=== PATIENT | male | born 1995 | race Caucasian/White ===

== ENCOUNTER 2017-11-10 18:40 | Emergency (ER) | payer SELFPAY ==
[2017-11-10 18:41] VITALS: BP 127/78; PULSE 126; RESP 18; TEMP 36.1; O2SAT 99; BMI 20.2
[2017-11-10 19:45] LABS: Bacteria 0 SEEN /hpf (None Seen); Red Blood Cells-Urine 0 SEEN /hpf (0-5); Squamous Epithelial Cells - UA 0 SEEN /hpf (0-5)
[2017-11-10 19:59] LABS: Glucose, Dipstick Normal (Normal); Ketone-Dipstick Negative (Negative); Leukocyte Esterase-Dipstick 500 /ul (Negative); Nitrite-Dipstick Negative (Negative); Occult Blood-Urine 25 /ul (Negative); Protein-Dipstick 100 mg/dl (Negative); Specific Gravity, Urine 1.015 (1.002-1.030); Urine Clarity Cloudy (Clear); Urine Urobilinogen 4 mg/dl (Normal)
[2017-11-10 20:20] LABS: Color, Urine Amber (Yellow)
[2017-11-10 20:21] LABS: Urine Bilirubin Dipstick 1 mg/dL (Negative)
[2017-11-10 20:25] LABS: White Blood Cells 50-100 SEEN /hpf (0-5)
[2017-11-10 20:26] LABS: Mucous, Urine 1+ /hpf (<or=2+)
--- NOTE | 2017-11-10 20:41 | US_ITS ---
STUDY: SCROTUM ULTRASOUND REASON FOR EXAM: Male, 22 years old. Left scrotal pain TECHNIQUE: Ultrasound evaluation of the scrotum was performed with color Doppler and static montano-scale imaging. COMPARISON: None. FINDINGS: RIGHT TESTICLE INTRATESTICULAR: There is a normal size of the right testicle. The right testicle measures 4.6 x 2.9 x 2.6 cm. There is a homogenous echotexture. There is normal arterial and normal venous vascularity. There is no demonstrated right testicular mass or cyst. EXTRATESTICULAR: The epididymis is normal in size. The epididymis head measures 1.2 x 0.8 x 0.7 cm. There is normal vascularity of the epididymis. There is no demonstrated epididymal cystic structure. There is a small complex hydrocele. There is no demonstrated varicocele. There is no demonstrated extratesticular mass or cyst. LEFT TESTICLE INTRATESTICULAR: There is a normal size of the left testicle. The left testicle measures 4.6 x 3.4 x 2.6 cm. There is a homogenous echotexture. There is normal arterial and normal venous vascularity. There is no demonstrated left testicular mass or cyst. EXTRATESTICULAR: The epididymis is normal in size. The epididymis head measures 1.3 x 0.6 x 0.7 cm. There is increased vascularity of the epididymis. There is no demonstrated epididymal cystic structure. There is moderate size complex hydrocele. There is no demonstrated varicocele. There is no demonstrated extratesticular mass or cyst. US/Testicular with Arterial Flow IMPRESSION: No evidence for testicular mass or torsion. . Acute left-sided epididymitis with moderate-sized complex hydrocele Electronically Signed: Tato Barahona MD at 22:25 EDT , Service support ,
[2017-11-10] MEDS: Doxycycline 100 MG CAPSULE PO (21:00)
[2017-11-10] MEDS: HYDROcodone Bitartrate/Apap 5/325 Tablet PO (21:01)
[2017-11-10] MEDS: Ceftriaxone 500 MG Vial 250 MG IM (21:15)
--- NOTE | 2017-11-10 23:02 | ED.VISSUMM ---
- ER Visit Summary Date of Service: 11/10/17 Chief Complaint: Left testicle pain History of Present Illness: The patient is a 22 M with left testicle pain for 4 days. He noted some penile discharge with this. He has not had fever. He denies any high risk sexual activities or new partners. No rashes or other symptoms. Physical Examination: Afebrile vital signs unremarkable except for a heart rate of 126. Left testicle is diffusely swollen and tender to palpation. There is some scrotal swelling as well. Skin appears normal. No discharge noted. No lesions or lymphadenopathy noted. Test Results: Urine shows sign of infection. Cultures pending. Gonorrhea and Chlamydia testing pending. Emergency Department Course and Treatment: Ultrasound performed. This shows epididymitis and a left-sided hydrocele. Patient was treated with doxycycline and ceftriaxone. He received a short course of pain medication. His prescription report showed no active opioids. Patient will be referred to urology for follow-up. Treatment Plan: As above Disposition: Discharged Impression: 1. Left epididymitis This note was generated with [employer] dictation software. It may contain incorrect words, spelling, and punctuation that were not noted in review of the chart prior to signing ED Disposition - Plan for ED Patient: Chief Complaint: Male Pain/Injury Referrals: Care Physician,No Primary [Primary Care Provider] -
--- NOTE | 2017-11-10 23:06 | DCINST.ED_ITS ---
ED Disposition - Plan for ED Patient: Chief Complaint: Male Pain/Injury Instructions: ED Epididymitis Prescriptions: Hydrocodone Bitart/Apap 5-325 [[place] 5MG-325MG] 1 tab PO Q6H PRN PRN 3 Days #10 tab PRN Reason: Pain Doxycycline Monohydrate 100 mg PO BID #20 cap Referrals: Sarahi Faria MD [STAFF PHYSICIAN] -
[2017-11-10 23:09] LABS: Chlamydia Trachomatis by PCR Negative (Negative); Probe Check PASS
[2017-11-10 23:10] LABS: Probe Check PASS
[2017-11-10 23:11] LABS: Neisserai gonorrhoeae by PCR Positive (Negative)
[2017-11-10] MEDS: Morphine 4 MG/ML Syringe SC (23:26)
[2017-11-10 23:28] VITALS: BP 130/80; PULSE 85; RESP 15; O2SAT 97
--- NOTE | 2017-11-10 23:29 | ED.RN ---
[facility]VD CALL FROM LAB: REPORTING + GONORRHEA RESULTS. DR LEE MADE AWARE. PRINTED HANDOUT OFF GUERA ON GONORRHEA AND GAVE TO PATIENT
== END 2017-11-10 23:30 | disposition home or self-care (01) ==
PROVIDERS: Emergency Provider Emergency Medicine
DX: N45.1 Epididymitis (principal); F17.210 Nicotine dependence, cigarettes, uncomplicated
CPT/HCPCS: 76870; 81001; 87086; 87088; 87491; 87591; 93976; 96372; 99283